=== PATIENT | female | born 2005 | race Caucasian/White ===

== ENCOUNTER 2024-06-24 02:38 | Emergency (ER) | payer OTHER ==
[2024-06-24] MEDS ORDERED: NA CHLORIDE 0.9% 1,000 ML ONE (03:32)
[2024-06-24 03:39] LABS: Specific Gravity 1.018 (1.005-1.030)
[2024-06-24 03:42] LABS: Specific Gravity 1.018 (1.005-1.030); Sqamous Epithelial <5 /HPF (None Seen); Urine Bacteria None Seen /HPF (<20); Urine Bilirubin NEGATIVE (Negative); Urine Blood 2+ (Negative); Urine Clarity Clear (Clear); Urine Color Light-Yellow (Yellow); Urine Culture Reflex Order NOT NEEDED; Urine Glucose NEGATIVE (Negative); Urine Ketones NEGATIVE (Negative); Urine Microscopic Reflex YN ORDER UMIC; Urine Nitrite NEGATIVE (Negative); Urine Protein NEGATIVE (Negative); Urine RBC <5 /HPF (None Seen); Urine Urobilinogen Normal (Normal); Urine WBC <5 /HPF (<5); Urine pH 6.5 (5.0-7.0)
[2024-06-24 03:44] LABS: Absolute Eosinophils 0.1 K/uL (0-0.5); Absolute Monocytes 0.5 K/uL (0.1-1.3); Absolute Neutrophil 3.8 K/uL (1.8-8.0); Basophils % 0.4 % (0-1.3); Eosinophils % 1.4 % (0-4.4); Hematocrit 37.9 % (36.0-45.0); Hemoglobin 13.1 g/dL (12.0-15.0); Lymphocytes % 31.2 % (15.3-44.8); MCH 31.2 pg (27.0-35.0); MCHC 34.6 g/dL (32.0-36.0); MCV 90.2 fL (80-100); MPV 8.4 fL (7.6-11.3); Monocytes % 8.1 % (3.3-12.3); Neutrophils % 58.9 % (41.7-73.7); Platelets 225 thou/uL (152-406); Red Cell Distribution Width 13.5 % (12.1-15.2)
[2024-06-24 03:55] LABS: Albumin 4.2 g/dL (3.4-5.0); Albumin/Globulin Ratio 1.2 (1.1-1.8); Anion Gap 8.6 mEq/L (5.0-15.0); Bilirubin Total 0.4 mg/dL (0.2-1.0); Globulin 3.6 g/dL (2.3-3.5); Potassium 3.6 mEq/L (3.5-5.1); Protein, Total 7.8 g/dL (6.4-8.2)
--- NOTE | 2024-06-24 06:13 | EDPHYS ---
Physician Documentation [facility] Name: Tere Cox Age: 18 yrs Sex: Female : 2005 Arrival Date: 06/24/2024 Time: 02:38 Bed 6 Private MD: ED Physician Nu Conteh HPI: 06/24 03:18 This 18 yrs old Female presents to ER via Ambulatory with complaints of Abdominal Pain. sp3 03:18 18-year-old female with no significant past medical history presents with epigastric sp3 pain off and on for the last several weeks. Tonight it started epigastrically and radiated bilaterally to her back. She denies any other symptoms including fever, chest pain, shortness of breath, vomiting, diarrhea, CUSTOMS COMPLIANCE ANALYST symptoms, symptoms or any other signs or symptoms on ROS at this time.. 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 - Infectious Disease History:: Denies. - Social history:: Smoking status: Patient denies any tobacco usage or history of. ROS: 03:18 Constitutional: Negative for fever, chills, and weight loss, Eyes: Negative for injury, sp3 pain, redness, and discharge, ENT: Negative for injury, pain, and discharge, Neck: Negative for injury, pain, and swelling, Cardiovascular: Negative for chest pain, palpitations, and edema, Respiratory: Negative for shortness of breath, cough, wheezing, and pleuritic chest pain, Back: Negative for injury and pain, MS/Extremity: Negative for injury and deformity, Skin: Negative for injury, rash, and discoloration, Neuro: Negative for headache, weakness, numbness, tingling, and seizure, Psych: Negative for depression, anxiety, suicide ideation, homicidal ideation, and hallucinations, Allergy/Immunology: Negative for hives, rash, and allergies, 03:18 All other systems are negative, Exam: 03:19 Constitutional: This is a well developed, well nourished patient who is awake, alert, sp3 and in no acute distress. Head/Face: Normocephalic, atraumatic. Eyes: Pupils equal round and reactive to light, extra-ocular motions intact. Lids and lashes normal. Conjunctiva and sclera are non-icteric and not injected. Cornea within normal limits. Periorbital areas with no swelling, redness, or edema. Neck: Trachea midline, no thyromegaly or masses palpated, and no cervical lymphadenopathy. Supple, full range of motion without nuchal rigidity, or vertebral point tenderness. No Meningismus. Chest/axilla: Normal chest wall appearance and motion. Nontender with no deformity. No lesions are appreciated. Cardiovascular: Regular rate and rhythm with a normal S1 and S2. No gallops, murmurs, or rubs. Normal PMI, no JVD. No pulse deficits. Respiratory: Lungs have equal breath sounds bilaterally, clear to auscultation and percussion. No rales, rhonchi or wheezes noted. No increased work of breathing, no retractions or nasal flaring. Back: No spinal tenderness. No costovertebral tenderness. Full range of motion. Skin: Warm, dry with normal turgor. Normal color with no rashes, no lesions, and no evidence of cellulitis. MS/ Extremity: Pulses equal, no cyanosis. Neurovascular intact. Full, normal range of motion. Neuro: Awake and alert, GCS 15, oriented to person, place, time, and situation. Cranial nerves II-XII grossly intact. Motor strength 5/5 in all extremities. Sensory grossly intact. Cerebellar exam normal. Normal gait. Psych: Awake, alert, with orientation to person, place and time. Behavior, mood, and affect are within normal limits. 03:19 Abdomen/GI: Mild epigastric pain to palpation without peritoneal signs, rebound or guarding. Vital signs normal., Vital Signs: 02:57 BP 112 / 66; Pulse 74; Resp 16; Temp 98.2; Pulse Ox 100% ; Weight 56.7 kg; Height 5 ft. vc1 5 in. ; Pain 0/10; 04:37 BP 109 / 69; Pulse 73; Resp 18; Temp 98.2; Pulse Ox 100% ; Pain 0/10; bm8 02:57 Body Mass Index 20.80 (56.70 kg, 165.1 cm) - Percentile 38.9 % vc1 02:57 Pain Scale: Adult vc1 04:37 Pain Scale: Adult bm8 Creswell Coma Score: 04:37 Eye Response: spontaneous(4). Motor Response: obeys commands(6). Verbal Response: bm8 oriented(5). Total: 15. MDM: 02:44 Medical Screening Exam initiated sp3 03:19 Data reviewed: vital signs, nurses notes, lab test result(s), radiologic studies. ED sp3 course: 18-year-old female with epigastric abdominal pain off and on for 2 weeks. Differential diagnosis includes gastritis, GERD, pancreatitis, biliary pathology including cholecystitis, Melina lithiasis, biliary colic, UTI/pyelonephritis spectrum, kidney stone, colitis, other GI pathology, among others. I med/tele suspicious of CUSTOMS COMPLIANCE ANALYST or aortic pathology at this time. Workup will include CT scan of the abdomen pelvis, labs, UA and general supportive care. IV fluids ordered. No pain medications indicated at this time. Disposition pending workup and patient course.. 06:12 ED course: Very mild gallbladder wall thickening which does not correlate clinically sp3 with pain and labs. Remainder of full workup is negative. Will give patient results and have her follow-up with GI for potential endoscopy.. 06/24 03:14 Order name: CBC with Diff; Complete Time: 04:00 sp3 06/24 03:14 Order name: CMP; Complete Time: 04:00 sp3 06/24 03:14 Order name: Lipase; Complete Time: 04:00 sp3 06/24 03:14 Order name: Test, Urine; Complete Time: 04:00 sp3 06/24 03:14 Order name: Urinalysis w/ reflexes; Complete Time: 04:00 sp3 06/24 03:14 Order name: CT Abd/Pelvis - IV Contrast Only sp3 06/24 03:14 Order name: IV Saline Lock; Complete Time: 03:37 sp3 06/24 03:14 Order name: Labs collected and sent; Complete Time: 03:37 sp3 Administered Medications: 03:36 Drug: NS 0.9% IV 1000 ml IV at 1 bolus Per protocol; to be given as a bolus over 60 bm8 minutes Route: IV; Rate: 1 bolus; Site: right antecubital; 04:36 Follow up: IV Status: Completed infusion; IV Intake: 1000ml vc1 Disposition Summary: 06/24/24 06:13 Discharge Ordered Notes: Location: Home sp3 Condition: Stable sp3 Diagnosis - Abdominal pain sp3 Followup: sp3 - With: Private Physician - When: Upon discharge from the Emergency Department - Reason: Continuance of care Discharge Instructions: - Discharge Summary Sheet sp3 - Abdominal Pain, Adult sp3 Forms: - Medication Reconciliation Form sp3 - Antibiotic Education sp3 - Prescription Opioid Use sp3 - Patient Portal Instructions sp3 - Leadership Thank You Letter sp3 Signatures: Dispatcher [employer] Nu Tineo MD MD sp3 Halina Freiats RN RN vc1 Kin Medrano RN RN bm8
--- NOTE | 2024-06-24 06:13 | ER ---
Nurse's Notes [facility] Name: Tere Cox Age: 18 yrs Sex: Female : 2005 Arrival Date: 06/24/2024 Time: 02:38 Bed 6 Private MD: Diagnosis: Abdominal pain Presentation: 06/24 02:57 Chief complaint: Patient states: For the past week severe pain at night, pain shoots to vc1 back. Started on prilosec sunday. Coronavirus screen: Client denies travel out of the [place] in the last 14 days. At this time, the client does not indicate any symptoms associated with coronavirus-19. Ebola Screen: Patient negative for fever greater than or equal to 101.5 degrees Fahrenheit, and additional compatible Ebola Virus Disease symptoms Patient denies exposure to infectious person. Patient denies travel to an Ebola-affected area in the 21 days before illness onset. No symptoms or risks identified at this time. Initial Sepsis Screen: Does the patient meet any 2 criteria? No. Patient's initial sepsis screen is negative. Does the patient have a suspected source of infection? No. Patient's initial sepsis screen is negative. Risk Assessment: Do you want to hurt yourself or someone else? Patient reports no desire to harm self or others. Note pain is resolved. Onset of symptoms was June 24, 2024. 02:57 Method Of Arrival: Ambulatory vc1 02:57 Acuity: RONAN 3 vc1 Triage Assessment: 03:29 General: Appears in no apparent distress. comfortable, slender, well groomed, well vc1 developed, well nourished, Behavior is calm, cooperative, appropriate for age. General: pain has resolved. Pain: Complains of pain in epigastric area. EENT: No deficits noted. No signs and/or symptoms were reported regarding the EENT system. Neuro: Level of Consciousness is awake, alert, obeys commands, Oriented to person, place, time, situation, Appropriate for age. Cardiovascular: Heart tones S1 S2 present Capillary refill < 3 seconds Patient's skin is warm and dry. Respiratory: Airway is patent Respiratory effort is even, unlabored, Respiratory pattern is regular, symmetrical, Breath sounds are clear bilaterally. GI: Abdomen is flat, non-distended, Reports epigastric pain that radiates to shoulder blades. : No deficits noted. No signs and/or symptoms were reported regarding the genitourinary system. Derm: Skin is intact, is healthy with good turgor, Skin is dry, Skin is normal, Skin temperature is warm. Musculoskeletal: Circulation, motion, and sensation intact. Range of motion: intact in all extremities. 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 - Infectious Disease History:: Denies. - Social history:: Smoking status: Patient denies any tobacco usage or history of. Screenin:11 [facility] ED Fall Risk Assessment (Adult) History of falling in the last 3 months, vc1 including since admission No falls in past 3 months (0 pts) Confusion or Disorientation No (0 pts) Intoxicated or Sedated No (0 pts) Impaired Gait No (0 pts) Mobility Assist Device Used No (0 pt) Altered Elimination No (0 pt) Score/Fall Risk Level 0 - 2 = Low Risk Oriented to surroundings, Maintained a safe environment, Educated pt \T\ family on fall prevention, incl call for assistance when getting out of bed. Abuse screen: Denies threats or abuse. Nutritional screening: No deficits noted. Tuberculosis screening: No symptoms or risk factors identified. Assessment: 03:34 General: see triage assessment. vc1 03:34 GI: Bowel sounds present X 4 quads. Abd is soft Abd is non tender Reports epigastric vc1 pain. 04:37 Reassessment: Patient appears in no apparent distress at this time. Patient and/or bm8 family updated on plan of care and expected duration. Pain level reassessed. Patient is alert, oriented x 3, equal unlabored respirations, skin warm/dry/pink. Patient denies pain at this time. Patient states feeling better. Patient states symptoms have improved. Vital Signs: 02:57 BP 112 / 66; Pulse 74; Resp 16; Temp 98.2; Pulse Ox 100% ; Weight 56.7 kg; Height 5 ft. vc1 5 in. ; Pain 0/10; 04:37 BP 109 / 69; Pulse 73; Resp 18; Temp 98.2; Pulse Ox 100% ; Pain 0/10; bm8 02:57 Body Mass Index 20.80 (56.70 kg, 165.1 cm) - Percentile 38.9 % vc1 02:57 Pain Scale: Adult vc1 04:37 Pain Scale: Adult bm8 Morales Coma Score: 04:37 Eye Response: spontaneous(4). Motor Response: obeys commands(6). Verbal Response: bm8 oriented(5). Total: 15. ED Course: 02:40 Patient arrived in ED. [id number] 02:43 Nu Conteh MD is Attending Physician. sp3 03:10 Triage completed. vc1 03:11 Arm band placed on right wrist. vc1 03:27 Halina Freitas, RN is Primary Nurse. vc1 03:27 Initial lab(s) drawn, by ut, sent to lab. Urine collected: clean catch specimen, clear. vc1 Inserted saline lock: 22 gauge in right antecubital area, using aseptic technique. Blood collected. Flushed with 10 mL NS. 03:28 Patient has correct armband on for positive identification. Bed in low position. Call vc1 light in reach. Pulse ox on. NIBP on. 04:15 CT Abd/Pelvis - IV Contrast Only In Process Unspecified. EDMS 06:19 Provided Education on: f/u with PCP. vc1 06:19 No provider procedures requiring assistance completed. IV discontinued, intact, vc1 bleeding controlled, No redness/swelling at site. Pressure dressing applied. Administered Medications: 03:36 Drug: NS 0.9% IV 1000 ml IV at 1 bolus Per protocol; to be given as a bolus over 60 bm8 minutes Route: IV; Rate: 1 bolus; Site: right antecubital; 04:36 Follow up: IV Status: Completed infusion; IV Intake: 1000ml vc1 Medication: 03:28 VIS not applicable for this client. vc1 Intake: 04:36 IV: 1000ml; Total: 1000ml. vc1 Outcome: 06:13 Discharge ordered by . sp3 06:19 Discharged to home ambulatory, with family, vc1 06:19 Condition: stable 06:19 Discharge instructions given to patient, Instructed on discharge instructions, follow up and referral plans. Demonstrated understanding of instructions, follow-up care, 06:26 Patient left the ED. vc1 Signatures: Dispatcher [employer] Nu Tineo MD MD sp3 Angelita [id number] Halina Freitas RN RN vc1 Kin Medrano RN RN bm8
--- NOTE | 2024-06-24 06:43 | RAD REPORT ---
EXAM: CT Abdomen and Pelvis With Intravenous Contrast CLINICAL HISTORY: The patient is 18 years old and is Female; ABD PAIN TECHNIQUE: Axial computed tomography images of the abdomen and pelvis with intravenous contrast. Sagittal and coronal reformatted images were created and reviewed. This CT exam was performed using one or more of the following dose reduction techniques: automated exposure control, adjustmen t of the mA and/or kV according to patient size, and/or use of iterative reconstruction technique. COMPARISON: No relevant prior studies available. FINDINGS: Lung bases: Unremarkable. No mass. No consolidation. ABDOMEN: Liver: Unremarkable. No mass. Gallbladder and bile ducts: There may be some mild gallbladder wall thickening. No calcified stones. No ductal dilation. Pancreas: Unremarkable. No mass. No ductal dilation. Spleen: Unremarkable. No splenomegaly. Adrenals: Unremarkable. No mass. Kidneys and ureters: Unremarkable. No solid mass. No hydronephrosis. Stomach and bowel: Unremarkable. No obstruction. No mucosal thickening. PELVIS: Appendix: The appendix is normal. Bladder: Unremarkable. Reproductive: 3.3 cm simple cyst in the right adnexal region. ABDOMEN and PELVIS: Intraperitoneal space: Unremarkable. No free air. No significant fluid collection. Bones/joints: No acute fracture. No dislocation. Soft tissues: Unremarkable. Vasculature: Unremarkable. No abdominal aortic aneurysm. Lymph nodes: Unremarkable. No enlarged lymph nodes. IMPRESSION: 1. There may be some mild gallbladder wall thickening. Correlate with right upper quadrant ultras ound if clinically indicated. 2. 3.3 cm simple cyst in the right adnexal region. 3. The appendix is normal. Electronically signed by: Dakota Chaparro MD 06/24/2024 05:53 AM [facility] 8 Due to temporary technical issues with the [employer] reporting system, reports are being raz d by the in-house radiologist without review as a courtesy to ensure prompt reporting the interpreting radiologist is fully responsible for the content of the report. Transcribed Date/Time: 06/24/2024 6:43 AM
[2024-06-24 06:49] VITALS: TEMP 98.2; O2SAT 100
[2024-06-24 06:51] VITALS: BP 109/69
== END 2024-06-24 06:26 | disposition home or self-care (01) ==
LOC: ER 02:38
DX: R10.13 Epigastric pain (principal)
CPT/HCPCS: 85025; 81001; 36415; 81025; 83690; 80053; 74177; Q9967; J7030